=== PATIENT | female | born 1985 | race Two or more races ===

== ENCOUNTER 2019-07-14 10:33 | Emergency (ER) | payer OTHER ==
[~2019-07-14] VITALS: Ht 162.6 cm; Wt 70.3 kg
== END 2019-07-14 15:49 | disposition home or self-care (01) ==
LOC: ER 10:33
DX: O26.851 Spotting complicating pregnancy, first trimester (principal); O36.80X1 Pregnancy with inconclusive fetal viability, fetus 1; O34.219 Maternal care for unspecified type scar from previous cesarean delivery; Z34.81 Encounter for supervision of other normal pregnancy, first trimester